=== PATIENT | female | born 1990 | race African-American/Black ===

== ENCOUNTER 2017-05-24 22:12 | Emergency (ER) | payer BC ==
[~2017-05-24] VITALS: Ht 165.1 cm; Wt 75.0 kg
[2017-05-24 22:18] VITALS: BP 124/79; PULSE 57; RESP 20; TEMP 97.4; O2SAT 96
[2017-05-24] MEDS ORDERED: SODIUM CHLOR 0.9% 1000 ML INJ 1,000 ML IV SCH (22:41)
[2017-05-24] MEDS ORDERED: KETOROLAC TROMETHAMINE 30 MG/ML (IVP) VIAL IVP ONE (22:45)
[2017-05-24] MEDS ORDERED: SODIUM CHLORIDE 0.9% FLUSH 10 ML FLUSH IV FLUSH PRN (22:45)
[2017-05-24] MEDS ORDERED: ONDANSETRON HCL 4 MG/2 ML VIAL IVP ONE (22:45)
[2017-05-24] MEDS ORDERED: PANTOPRAZOLE SODIUM 40 MG VIAL IV PUSH ONE (22:45)
--- NOTE | 2017-05-24 22:47 | PD ---
HPI Chief Complaint: Abdominal Pain Time Seen by Provider: 22:39 Travel History International Travel<30 days: No Contact w/Intl Traveler<30days: No Traveled to known affect area: No History of Present Illness HPI 27-year-old female complains of abdominal pain, nausea vomiting. Patient states that she has history of recurrent abdominal pain. Patient has been taking muscle relaxant for abdominal pain. Patient had a laparoscopic surgery in the past for abdominal pain. Patient status post appendectomy. Patient started having nausea vomiting this evening. Family member with flu symptoms recently. Patient denies any chest pain or shortness of breath. Patient states that the abdominal pain is severe cramping diffuse of the abdomen. Patient denies any pain radiation. Patient denies any dysuria frequency. Patient denies any vaginal discharge or bleeding. Patient denies any fever chills. PFSH Past Medical History ?: Not LMP: 05/13/2017 Social History Tobacco Use: No Allergies-Medications (Allergen,Severity, Reaction): Coded Allergies: No Known Allergies (Unverified , 05/24/17) Reported Meds & Prescriptions Reported Meds & Active Scripts Active Bentyl (Dicyclomine HCl) 10 Mg Cap 10 Mg PO TID Phenergan (Promethazine HCl) 25 Mg Tablet 25 Mg PO Q6H PRN Zofran Odt (Ondansetron Odt) 4 Mg Tab 4 Mg SL Q6HR PRN Review of Systems General / Constitutional: No: Fever Eyes: No: Visual changes HENT: No: Headaches Cardiovascular: No: Chest Pain or Discomfort Respiratory: No: Shortness of Breath Gastrointestinal: Positive: Nausea, Vomiting, Abdominal Pain Genitourinary: No: Dysuria Musculoskeletal: No: Pain Skin: No Rash Neurologic: No: Weakness Psychiatric: No: Depression Endocrine: No: Polydipsia Hematologic/Lymphatic: No: Easy Bruising Physical Exam Narrative GENERAL: Well-nourished, well-developed patient. SKIN: Focused skin assessment warm/dry. HEAD: Normocephalic. EYES: No scleral icterus. No injection or drainage. NECK: Supple, trachea midline. No JVD or lymphadenopathy. CARDIOVASCULAR: Regular rate and rhythm without murmurs, gallops, or rubs. RESPIRATORY: Breath sounds equal bilaterally. No accessory muscle use. GASTROINTESTINAL: Abdomen soft, nondistended. Patient has moderate diffuse tenderness over the abdomen. No rebound tenderness. No mass. MUSCULOSKELETAL: No cyanosis, or edema. BACK: Nontender without obvious deformity. No CVA tenderness. Neurologic exam normal. Data Data Last Documented VS Vital Signs Date Time Temp Pulse Resp B/P (MAP) Pulse Ox O2 Delivery O2 Flow Rate FiO2 05/24/17 22:18 97.4 57 20 124/79 (94) 96 Orders Orders Complete Blood Count With Diff (05/24/17 22:39) Comprehensive Metabolic Panel (05/24/17 22:39) Lipase (05/24/17 22:39) Iv Access Insert/Monitor (05/24/17 22:39) Ecg Monitoring (05/24/17 22:39) Oximetry (05/24/17 22:39) Ed Urine Pregnancytest Poc (05/24/17 22:39) Ondansetron Inj (Zofran Inj) (05/24/17 22:45) Sodium Chlor 0.9% 1000 Ml Inj (Ns 1000 M (05/24/17 22:41) Sodium Chloride 0.9% Flush (Ns Flush) (05/24/17 22:45) Ketorolac Inj (Toradol Inj) (05/24/17 22:45) Pantoprazole Inj (Protonix Inj) (05/24/17 22:45) Metoclopramide Inj (Reglan Inj) (05/24/17 23:30) Diphenhydramine Inj (Benadryl Inj) (05/24/17 23:30) Ed Discharge Order (05/24/17 23:57) Labs Laboratory Tests Test 05/24/17 23:00 White Blood Count 11.5 TH/MM3 Red Blood Count 3.99 MIL/MM3 Hemoglobin 12.4 GM/DL Hematocrit 37.0 % Mean Corpuscular Volume 92.8 FL Mean Corpuscular Hemoglobin 31.2 PG Mean Corpuscular Hemoglobin Concent 33.6 % Red Cell Distribution Width 13.6 % Platelet Count 261 TH/MM3 Mean Platelet Volume 8.8 FL Neutrophils (%) (Auto) 75.5 % Lymphocytes (%) (Auto) 19.1 % Monocytes (%) (Auto) 4.7 % Eosinophils (%) (Auto) 0.4 % Basophils (%) (Auto) 0.3 % Neutrophils # (Auto) 8.7 TH/MM3 Lymphocytes # (Auto) 2.2 TH/MM3 Monocytes # (Auto) 0.5 TH/MM3 Eosinophils # (Auto) 0.0 TH/MM3 Basophils # (Auto) 0.0 TH/MM3 CBC Comment DIFF FINAL Differential Comment Blood Urea Nitrogen 13 MG/DL Creatinine 0.77 MG/DL Random Glucose 138 MG/DL Total Protein 7.6 GM/DL Albumin 3.6 GM/DL Calcium Level 8.8 MG/DL Alkaline Phosphatase 62 U/L Aspartate Amino Transf (AST/SGOT) 33 U/L Alanine Aminotransferase (ALT/SGPT) 40 U/L Total Bilirubin 0.3 MG/DL Sodium Level 141 MEQ/L Potassium Level 3.4 MEQ/L Chloride Level 105 MEQ/L Carbon Dioxide Level 27.6 MEQ/L Anion Gap 8 MEQ/L Estimat Glomerular Filtration Rate 111 ML/MIN Lipase 140 U/L [facility] Medical Decision Making Medical Screen Exam Complete: Yes Emergency Medical Condition: Yes Interpretation(s) 23:47 PM. CBC WBC 11.5. 75 neutrophil. Potassium 3.4. CMP otherwise within normal limits. Differential Diagnosis Differential diagnosis including gastroenteritis, gastritis, PUD, pancreatitis, cholecystitis, colitis, UTI, pyelonephritis, nephrolithiasis. Narrative Course 27-year-old female with abdominal pain, nausea vomiting. Patient has history of recurrent abdominal pain. Nausea vomiting started this evening. Normal saline solution 1 25 cc an hour. Protonix 40 mg IV. Toradol 30 mg IV. Zofran 4 mg IV. Reglan 10 mg IV. Benadryl 25 mg IV. Diagnosis Primary Impression: Gastroenteritis Patient Instructions: General Instructions Additional Instructions: Take medication as directed. Follow-up with personal physician. Return if persistent problem or worse. Med/Other Pt SpecificInfo: Prescription(s) given Scripts Dicyclomine (Bentyl) 10 Mg Cap 10 MG PO TID for Bowel Management, #15 CAP 0 Refills Prov: Aristides Zavaleta MD 05/24/17 Promethazine (Phenergan) 25 Mg Tablet 25 MG PO Q6H Y for NAUSEA OR VOMITING, #12 TAB 0 Refills Prov: Aristides Zavaleta MD 05/24/17 Ondansetron Odt (Zofran Odt) 4 Mg Tab 4 MG SL Q6HR Y for Nausea/Vomiting, #12 TAB 0 Refills Prov: Aristides Zavaleta MD 3/27/18 Disposition: 01 DISCHARGE HOME Condition: Stable Aristides Zavaleta MD May 24, 2017 22:47
[2017-05-24 23:27] LABS: AUTOMATED NEUTROPHIL # 8.7 TH/MM3 (1.8-7.7); BASOPHIL % 0.3 % (0.0-2.0); EOSINOPHIL % 0.4 % (0.0-4.0); HEMOGLOBIN 12.4 GM/DL (11.6-15.3); LYMPH % 19.1 % (9.0-44.0); LYMPHOCYTE # 2.2 TH/MM3 (1.0-4.8); MEAN CELL VOLUME 92.8 FL (80.0-100.0); MEAN CORPUSCULAR HEMOGLOBIN 31.2 PG (27.0-34.0); MEAN CORPUSCULAR HGB CONC 33.6 % (32.0-36.0); MEAN PLATELET VOLUME 8.8 FL (7.0-11.0); MONO % 4.7 % (0.0-8.0); MONOCYTE # 0.5 TH/MM3 (0-0.9); NEUT % 75.5 % (16.0-70.0); PLATELET COUNT 261 TH/MM3 (150-450); RED BLOOD COUNT 3.99 MIL/MM3 (4.00-5.30); RED CELL DISTRIBUTION WIDTH 13.6 % (11.6-17.2); WHITE BLOOD COUNT 11.5 TH/MM3 (4.0-11.0)
[2017-05-24] MEDS ORDERED: diphenhydrAMINE HCL 50 MG/ML VIAL IV PUSH ONE (23:30)
[2017-05-24] MEDS ORDERED: METOCLOPRAMIDE HCL 10 MG/2 ML VIAL IV PUSH ONE (23:30)
[2017-05-24 23:45] LABS: ALBUMIN 3.6 GM/DL (3.4-5.0); AST (GOT) 33 U/L (15-37); BICARBONATE 27.6 MEQ/L (21.0-32.0); BLOOD UREA NITROGEN 13 MG/DL (7-18); CALCIUM 8.8 MG/DL (8.5-10.1); CHLORIDE 105 MEQ/L (98-107); CREATININE 0.77 MG/DL (0.50-1.00); GLOMERULAR FILTRATION RATE 111 ML/MIN (>89); GLUCOSE,RANDOM 138 MG/DL (74-106); SODIUM (NA) 141 MEQ/L (136-145)
[2017-05-24 23:46] LABS: ALT (GPT) 40 U/L (10-53)
[2017-05-24 23:49] LABS: ALKALINE PHOSPHATASE 62 U/L (45-117); TOTAL BILIRUBIN ADULT 0.3 MG/DL (0.2-1.0); TOTAL PROTEIN 7.6 GM/DL (6.4-8.2)
[2017-05-24] MEDS ORDERED: PROM25TA10 PO (23:50)
[2017-05-24] MEDS ORDERED: DICY10 PO (23:50)
[2017-05-24] MEDS ORDERED: ZOFR4TAB3 SL (23:50)
== END 2017-05-25 00:37 | disposition home or self-care (01) ==
LOC: NED 22:12 → NEPD 05-25 00:37
DX: K52.9 Noninfective gastroenteritis and colitis, unspecified (principal)
CPT/HCPCS: 80053; 83690; 84703; 85025; 96374; 96375; 99284; C9113; J1200; J1885; J2405; J2765; J7030